=== PATIENT | male | born 1985 | race Caucasian/White ===

== ENCOUNTER 2024-04-15 16:52 | Emergency (ER) | payer BC, SELFPAY ==
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
[2024-04-15 17:08] VITALS: BP 142/100; PULSE 62; RESP 16; TEMP 36.4; O2SAT 100
--- NOTE | 2024-04-15 19:50 | ED_ITS ---
HPI - Back Pain/Injury General Chief Complaint: Back Pain/Injury Stated Complaint: my back's screwed up Time Seen by Provider: 04/15/24 19:01 History of Present Illness HPI Narrative: 38-year-old male with a past medical history including chronic midline back pain. He has gone through MRIs and chiropractic therapy previously. Patient states that he was lifting an object earlier today and felt a sudden sharp pain in his back that worsened with time. Denies any weakness or numbness in extremities. States the pain is severe and he is taking ibuprofen at home without any significant relief. Is able ambulate and move albeit with some discomfort. Denies any paresthesias, anesthesias or any saddle anesthesia. No nausea, vomiting. No abdominal pain. No pelvic or groin. . No incontinence to urine or bowel. Denies other traumas or injuries. States this has happened before but this is more severe. Related Data Allergies Allergy/AdvReac Type Severity Reaction Status Date / Time No Known Allergies Allergy Unverified 03/19/16 20:58 Review of Systems Review of Systems: As reviewed above in HPI Exam Narrative: GENERAL: [Well-appearing, well-nourished, and in no acute distress.] HEAD: [Normocephalic, atraumatic.] EYES: [PERRLA and EOMI.] ENT: Nares clear, no rhinorrhea or epistaxis. Mucous membranes moist. NECK: Supple. CHEST: [Clear to auscultation. No respiratory distress.] HEART: [Regular rate and rhythm]. No murmur heard. [Normal peripheral pulses.] ABDOMEN: [Soft, nondistended], [nontender], [No rigidity or guarding] EXTREMITIES: Normal range of motion. [No edema.] Straight leg raise in the bilateral extremities does not list any pain. Full strength and sensation throughout. EHL and FHL 5/5 strength, hip flexors/extensors and knee flexors extensors with full 5/5 strength and range. Reproducible tenderness along the paraspinal muscles in the lumbar vertebral area. No midline tenderness. No step-offs deformities. SKIN: Warm, dry, no rash. NEURO: [No focal deficits]. Alert and oriented [x3.] No saddle anesthesias. No incontinence to urine or stool. Normal strength and sensation throughout both arms and legs. PSYCH: [Normal mood and affect.] Course Vital Signs Vital signs: Vital Signs Temperature 36.4 C 04/15/24 17:08 Pulse Rate 62 04/15/24 17:08 Respiratory Rate 16 04/15/24 17:08 Blood Pressure 142/100 H 04/15/24 17:08 Pulse Oximetry 100 04/15/24 17:08 Oxygen Delivery Room Air 04/15/24 17:08 Temperature 36.4 C 04/15/24 17:08 Pulse Rate 62 04/15/24 17:08 Respiratory Rate 16 04/15/24 17:08 Blood Pressure 142/100 H 04/15/24 17:08 Pulse Oximetry 100 04/15/24 17:08 Oxygen Delivery Room Air 04/15/24 17:08 MDM - Back Pain/Injury MDM Narrative Medical decision making narrative: 38-year-old otherwise healthy male presenting to the emergency department with lumbago and lumbar back pain. Patient states he has had lumbar issues before and goes through chiropractic therapy several times every other week. No injuries or trauma but states that he was doing some lifting today and felt a twinge of pain in his back that progressively got worse throughout the evening. Has tried ibuprofen without any relief. Patient has no red flag signs or symptoms of back pain to suggest any cauda equina or conus medullaris syndrome. He has no incontinence, no saddle anesthesias, no no overlying skin changes. Full strength and sensations throughout both arms and legs. Patient likely has musculoskeletal back pain and exacerbation of lumbago. Very low suspicion for other process especially with his lack of red flag symptoms. Clinical exam has ruled out neurological issue but patient may have some degenerative joint disease such as arthritis in his spine or sacroiliac joints. Patient declined politely any narcotic medications as he is in recovery. Will offer him intramuscular Toradol and Decadron for inflammation control and pain control. Patient will be re-evaluated and ambulate in the emergency department prior to discharge home. Patient was re-evaluated after initial therapies and had some minor relief, at this time we escalate his therapy to include dilaudid and Robaxin and after reassessment is able to ambulate with improved pain control. Patient will be sent home with steroids and muscle relaxers as well as pain control regimen including as needed oxycodone. Patient is comfortable this plan of care and counseled on the need for taking this medication only as breakthrough therapy in addition to his current regimen. Patient will be referred to physical therapy. Patient is comfortable with plan and is safe for discharge. Medical Records Attestation: I reviewed the patient's medical records. Discharge Plan Discharge Clinical Impression: Strain of lumbar region, Lumbago Patient Disposition: Home, Self-Care Condition: Stable Instructions: Antibiotic Form, Acute Low Back Pain (ED), Lower Back Exercises (ED) Additional Instructions: Follow-up with regular doctor, take the oxycodone as you need for breakthrough pain in addition to the steroids, muscle relaxers and Tylenol. Apply lidocaine patches to the areas that hurt, return with any new or worsening concerns. Return to the ER if you have increased pain in your back, you develop lower extremity weakness/numbness/paralysis, you have numbness or tingling in your private parts, or you are unable to control your ability to urinate/stool. Patient Language: [place] Prescriptions: New acetaminophen [Tylenol Extra Strength] 500 mg tablet 1,000 mg PO TID PRN (Reason: pain) Qty: 30 0RF ketorolac 10 mg tablet 10 mg PO Q8H PRN (Reason: pain) 5 Days Qty: 20 0RF Rx Instructions: maximum total duration of 5 days from all oral, intranasal, or parenteral formulations methocarbamol 750 mg tablet 750 mg PO TID PRN (Reason: pain) Qty: 20 0RF lidocaine 5 % adhesive patch,medicated 1 patch topical DAILY Qty: 15 0RF Rx Instructions: leave on most painful area for up to 12 hrs oxycodone 5 mg tablet 5 mg PO Q8H PRN (Reason: pain) Qty: 10 0RF Other Ambulatory Orders: PT Outpatient Eval and Treat (ONCE) Timeframe: 1 Week Location: Determined by Patient Ordered By: Fran Awan PT Outpatient Eval and Treat (ONCE) Timeframe: 20240422 Location: Determined by Patient Ordered By: Fran Awan Follow-up/Referrals: PHYSICIAN,IMPREGNATING TANK OPERATOR [Primary Care Provider] - Time of Disposition: 22:03
[2024-04-15] MEDS: dexAMETHasone SOD PHOS INJ 10 MG/ML 1 ML VIAL IM (19:57)
[2024-04-15] MEDS: KETOROLAC (*BKC) 60 MG/2 ML VIAL IM (19:57)
[2024-04-15] MEDS: methocarbamoL 750 MG TABLET 1500 MG PO (21:08)
[2024-04-15] MEDS: HYDROmorphone HCL INJ (*CRX) 1 MG/ML SYR IM (21:08)
[2024-04-15 22:21] VITALS: BP 132/82; PULSE 97; RESP 15; O2SAT 100
== END 2024-04-15 22:23 | disposition home or self-care (01) ==
PROVIDERS: Emergency Provider Student in an Organized Health Care Education/Training Program
DX: S39.012A Strain of muscle, fascia and tendon of lower back, initial encounter (principal)
CPT/HCPCS: 96372; 99284; A9270; J1100; J1171; J1885